=== PATIENT | female | born 1960 | race African-American/Black ===

== ENCOUNTER 2024-12-02 02:22 | Inpatient (IN) | payer BC, MEDICARE ==
[~2024-12-02] VITALS: Ht 165.1 cm; Wt 105.3 kg
[~2024-12-02 02:22] MED LIST: ASPI1TAB20 PO; CIPR-173 PO
--- NOTE | 2024-12-02 02:52 | ED.PDOC ---
History of Present Illness HPI Comments 63 y/o obese F presents with c/o hypoglycemia and generalized weakness. Patient has a history of DM w/neuropathy, Grave's disease, HLD, IBS, UTI's, and uterine fibroids. She reports feeling weak and checking and noticing her blood glucose being elevated, initially, an hour ago prior to arrival. Patient then endorses on taking her insulin and her blood glucose dropping significantly to the 40's range. Jerry also complains of 3-4x day history of intermittent headaches, palpitations, dizziness, and light vaginal spotting. She denies having any further associated symptoms. Chief Complaint: General Weakness Time Seen by MD: 02:50 Primary Care Provider: CHARLETTE HAVE ONE Reviewed Notes: Nurses Notes, Medications, Allergies Allergies: Coded Allergies: Codeine (Verified Allergy, Unknown, 02/11/14) Penicillins (Verified Allergy, Unknown, 02/25/14) Sulfa Antibiotics (Verified Allergy, Unknown, 02/25/14) Home Meds Reported Medications Ciprofloxacin Hcl (Cipro) 500 Mg Tab, 1 TAB PO QID, #20 TAB 02/26/14 Aspirin (Aspir-81) 81 Mg Tab, 1 TAB PO DAILY, #30 TAB 5 Refills 02/26/14 Information Source: Patient, Emergency Med Personnel Mode of Arrival: EMS Severity: Moderate Timing: Days Duration: Since onset Prehospital treatment: 12 Lead EKG, Accucheck, [employer] Past Medical History PAST MEDICAL HISTORY: DM (w/neuropathy), High Lipids, UTI'S Past Medical History (Other): Grave's disease IBS Surgical History: Denies all surgeries [employer]ATOR History: Uterine Fibroids (with nodules ) Family History Family History: No family hx of Cancer, No family hx of DM, No family hx of HTN Social History Smoker: Non-Smoker Alcohol: Denies ETOH Use Drugs: Denies Drug Use Lives In: Home Constitutional: reports: malaise, weakness (Lightheaded with any kind of activity so the patient will be admitted for hypoglycemia episode and severe generalized weakness for further supportive care) Genitourinary: reports: abnormal vagina bleeding Neurological: reports: dizziness All Other Systems: Reviewed and Negative (As per HPI) Physical Exam General Appearance: No Apparent Distress, Obese HEENT: Normal ENT Inspection, Pharynx Normal, TMs Normal Neck: Full Range of Motion, Non-Tender, Normal, Normal Inspection Respiratory: Chest Non-Tender, Lungs Clear, No Accessory Muscle Use, No Respiratory Distress, Normal Breath Sounds Cardiovascular: No Edema, No JVD, No Murmur, No Gallop, Normal Peripheral Pulses, Regular Rate/Rhythm Breast Exam: Deferred Gastrointestinal: No Organomegaly, Non Tender, No Pulsatile Mass, Normal Bowel Sounds, Soft Genitalia: Deferred Pelvic: Deferred Rectal: Deferred Extremities: Leg edema (2+ pedal edema to bilatearl lower extremities), No calf tenderness, Normal capillary refill, Normal range of motion, Non-tender, No pedal edema Musculoskeletal : Apperance: Normal Neurologic: Alert, dust operator II-XII nml as Tested, No Motor Deficits, Normal Affect, Normal Mood, No Sensory Deficits Cerebellar Function: Normal Reflexes: Normal Skin: Dry, Normal Color, Warm Lymphatic: No Adenopathy Was a procedure done? Was a procedure done?: No Differential Dx Considerations may include: viral syndrome, URI, UTI, hypoglycemia, electrolyte imbalance, among others X-Ray, Labs, Meds, VS Vital Signs Date Time Temp Pulse Resp B/P (MAP) Pulse Ox O2 Delivery O2 Flow Rate FiO2 12/02/24 02:56 69 12 96 Room Air* 0 21 12/02/24 02:56 98.8 69 12 125/55 (78) 96 98.8 12/02/24 02:22 98.8 69 14 133/65 (87) 97 98.8 Lab Test 12/02/24 04:00 12/02/24 03:42 12/02/24 02:52 Range/Units Urine Color Pending Urine Clarity Pending Urine pH Pending Urine Specific [place] Pending Urine Protein Pending Urine Ketones Pending Urine Blood Pending Urine Nitrite Pending Urine Bilirubin Pending Urine Urobilinogen Pending Urine Leukocyte Esterase Pending Urine RBC Pending Urine Microscopic WBC Pending Urine Squamous Epithelial Cells Pending Urine Bacteria Pending Urine Glucose Pending Troponin I High Sensitivity 11 11 </=34 ng/L White Blood Count 6.9 4.4-10.8 10^3/uL Red Blood Count 4.57 4.0-5.20 10^6/uL Hemoglobin 12.9 12.2-16.2 g/dL Hematocrit 39.0 36.0-46.0 % Mean Corpuscular Volume 85.3 80.0-100.0 fL Mean Corpuscular Hemoglobin 28.1 28.0-32.0 pg Mean Corpuscular Hemoglobin Concent 33.0 32.0-36.0 g/dL Red Cell Distribution Width 14.5 H 11.8-14.3 % Platelet Count 184 140-450 10^3/uL Mean Platelet Volume 7.3 6.9-10.8 fL Neutrophils (%) (Auto) 69.6 37.0-80.0 % Lymphocytes (%) (Auto) 20.5 10.0-50.0 % Monocytes (%) (Auto) 8.2 0.0-12.0 % Eosinophils (%) (Auto) 1.0 0.0-7.0 % Basophils (%) (Auto) 0.7 0.0-2.0 % Neutrophils # (Auto) 4.8 1.6-8.6 10 ^3/uL Lymphocytes # (Auto) 1.4 0.4-5.4 10 ^3/uL Monocytes # (Auto) 0.6 0-1.3 10 ^3/uL Eosinophils # (Auto) 0.1 0-0.8 10 ^3/uL Basophils # (Auto) 0 0-0.2 10 ^3/uL Nucleated Red Blood Cells 0.1 % Prothrombin Time 12.3 H 9.3-11.8 sec Prothrombin Time INR 1.18 H 0.9-1.15 Activated Partial Thromboplast Time 34.7 H 24.5-34.5 SEC Sodium Level 141 136-145 mmol/L Potassium Level 3.7 3.5-5.1 mmol/L Chloride Level 102 98-107 mmol/L Carbon Dioxide Level 29 20-31 mmol/L Anion Gap 10 5-15 Blood Urea Nitrogen 9 9-23 mg/dL Creatinine 0.85 0.550-1.02 mg/dL Glomerular Filtration Rate Calc 77 >90 mL/min BUN/Creatinine Ratio 10.6 10.0-20.0 Serum Glucose 175 H 74-106 mg/dL Calcium Level 8.8 8.7-10.4 mg/dL Total Bilirubin 0.7 0.2-1.0 mg/dL Aspartate Amino Transferase (AST) 29 <34 U/L Alanine Aminotransferase (ALT) 25 7-40 U/L Alkaline Phosphatase 147 H 46-116 U/L B-Type Natriuretic Peptide 20.50 0-100 pg/mL Total Protein 7.3 5.7-8.2 g/dL Albumin 4.0 3.2-4.8 g/dL Time of 1ST Reevaluation: 03:10 Reevaluation 1ST: Unchanged Patient Education/Counseling: Diagnosis, Treatment Family Education/Counseling: No Family Present Departure 1 Departure Time of Disposition: 04:18 Impression: Primary Impression: Post-menopause bleeding Additional Impressions: Generalized weakness Hypoglycemia Disposition: 09 ADMITTED INPATIENT Condition: Guarded Discharged With: Self Comments Severe Generalized Weakness and Hypoglycemia Chief Complaint: Severe generalized weakness, dizziness, and hypoglycemia History of Present Illness: Patient is a 63-year-old female with a history of type 2 diabetes, diabetic neuropathy, Graves' disease, irritable bowel syndrome, and uterine fibroids who presents to the ED with complaints of severe generalized weakness and dizziness with any kind of activity. She also reports mild vaginal bleeding. At home, her blood glucose was measured at 44 mg/dL, which improved after eating. Upon a rrival to the ED, her blood glucose had improved to 175 mg/dL. Despite this improvement, the patient continues to experience extreme weakness and lightheadedness with minimal exertion. Given her persistent symptoms and recent hypoglycemic episode, the decision has been made to admit the patient for further monitoring and supportive care. Review of Systems: Constitutional: Positive for generalized weakness and fatigue. Neurological: Positive for dizziness and lightheadedness with activity. Endocrine: Positive for history of diabetes with recent hypoglycemic episode. Genitourinary: Positive for mild vaginal bleeding. All other systems: Negative or not assessed during this encounter. Medications: Current medications not specified in molder shoulder pad. Likely on diabetic medications given history of type 2 diabetes and hypoglycemic episode. Likely on medication for Graves' disease. Allergies: No known allergies mentioned in molder shoulder pad. Past Medical History: Type 2 diabetes mellitus Diabetic neuropathy Graves' disease Irritable bowel syndrome Uterine fibroids Lab Results: Blood Glucose: 175 mg/dL (improved from 44 mg/dL at home) Chemistry Panel: Unremarkable CBC: Unremarkable Troponin: Normal at 11 BNP: Normal at 20 Hemoglobin: 13 g/dL Hematocrit: 39% Imaging and Other Relevant Results: No imaging studies mentioned in molder shoulder pad. Medical Decision Making: Summary Statement: 63-year-old female with type 2 diabetes presenting with severe generalized weakness, dizziness, and documented hypoglycemia (44 mg/dL) at home that has since improved to 175 mg/dL in the ED. Patient also reports mild vaginal bleeding. Problem List: 1. Hypoglycemia episode, 2. Severe generalized weakness and dizziness, 3. Mild vaginal bleeding, 4. Type 2 diabetes with neuropathy, 5. Graves' disease, 6. Irritable bowel syndrome, 7. Uterine fibroids. Differential Diagnosis: Hypoglycemia due to diabetic medication, adrenal insufficiency, malnutrition, insulinoma, reactive hypoglycemia; Weakness due to electrolyte abnormalities, anemia, cardiac dysfunction, thyroid dysfunction, medication side effects, dehydration; Vaginal bleeding due to uterine fibroids, endometrial pathology, hormonal imbalance, or other gynecological conditions. ED Course: Patient presented with severe weakness and dizziness. Initial labs showed improved blood glucose from home reading. Chemistry panel, CBC, troponin, and BNP were all within normal limits. Despite normalization of blood glucose, patient continued to experience significant weakness and lightheadedness with minimal activity. Decision made to admit for monitoring and supportive care. Assessment and Plan: 1. Hypoglycemia Episode: - Blood glucose improved from 44 mg/dL at home to 175 mg/dL in ED - Admit for close monitoring of blood glucose levels - Review current diabetic medication regimen and consider adjustment - Implement regular meal schedule with appropriate carbohydrate content - Educate patient on signs/symptoms of hypoglycemia and proper management 2. Severe Generalized Weakness and Dizziness: - Likely secondary to hypoglycemic episode, but persistent despite glucose normalization - Monitor for improvement with stabilization of blood glucose - Consider additional workup including thyroid function tests given history of Graves' disease - Assess for orthostatic hypotension and volume status - Physical therapy evaluation once stabilized 3. Mild Vaginal Bleeding: - Likely related to known uterine fibroids - Monitor quantity and character of bleeding - Consider gynecology consultation if bleeding persists or worsens - Check hemoglobin/hematocrit serially if bleeding continues 4. Chronic Medical Conditions (Type 2 Diabetes, Graves' Disease, IBS, Uterine Fibroids): - Continue home medications with adjustment of diabetic regimen as indicated - Assess thyroid function to ensure adequate control of Graves' disease - Maintain bowel regimen for IBS 5. Disposition: - Admit to medical floor for continued monitoring and management - Endocrinology consultation recommended - Anticipate discharge when blood glucose stabilizes and weakness improves Additional Notes: Patient admitted for hypoglycemia and severe generalized weakness Billing Information: ICD-10: E16.2 - Hypoglycemia, unspecified ICD-10: R53.1 - Weakness ICD-10: R42 - Dizziness and giddiness ICD-10: N93.8 - Other specified abnormal uterine and vaginal bleeding ICD-10: E11.40 - Type 2 diabetes mellitus with diabetic neuropathy, unspecified ICD-10: E05.0 - Graves' disease ICD-10: K58.9 - Irritable bowel syndrome without diarrhea ICD-10: D25.9 - Leiomyoma of uterus, unspecified Critical Care Note Critical Care Time?: No Stability Stability form required: No Heart Score Heart Score: Heart Score Response (Comments) Value History N/A 0 EKG N/A 0 Age N/A 0 Risk Factors N/A 0 Troponin N/A 0 Total 0 I personally scribed for KYLE ROSA MD ([email or web address]) on 12/02/24 at 02:52. Electronically submitted by Ashok Reynoso ([email or web address]). I personally scribed for KYLE ROSA MD ([email or web address]) on 12/02/24 at 03:10. Electronically submitted by Ashok Reynoso ([email or web address]). KYLE ROSA MD Dec 02, 2024 02:52
[2024-12-02 02:56] VITALS: PULSE 69; RESP 12; O2SAT 96
[2024-12-02 03:01] LABS: Basophils # (auto) 0 10 ^3/uL (0-0.2); Basophils % (auto) 0.7 % (0.0-2.0); Eosinophils # (auto) 0.1 10 ^3/uL (0-0.8); Hemoglobin 12.9 g/dL (12.2-16.2); Lymphocytes # (auto) 1.4 10 ^3/uL (0.4-5.4); Lymphocytes % (auto) 20.5 % (10.0-50.0); Mean Corpuscular Hemoglobin 28.1 pg (28.0-32.0); Mean Corpuscular Volume 85.3 fL (80.0-100.0); Monocytes # (auto) 0.6 10 ^3/uL (0-1.3); Monocytes % (auto) 8.2 % (0.0-12.0); Neutrophils # (auto) 4.8 10 ^3/uL (1.6-8.6); Neutrophils % (auto) 69.6 % (37.0-80.0); Nucleated Red Blood Cells % 0.1 %; Platelet Count (auto) 184 10^3/uL (140-450); Red Blood Cells 4.57 10^6/uL (4.0-5.20); Red Cell Distribution Width 14.5 % (11.8-14.3); White Blood Cell 6.9 10^3/uL (4.4-10.8)
[2024-12-02 03:17] LABS: INR 1.18 (0.9-1.15); Partial Thromboplastin Time 34.7 SEC (24.5-34.5); Prothrombin Time 12.3 sec (9.3-11.8)
[2024-12-02 03:19] LABS: Alanine Aminotransferase 25 U/L (7-40); Anion Gap 10 (5-15); Aspartate Aminotransferase 29 U/L (<34); BUN/Creatinine Ratio 10.6 (10.0-20.0); Bilirubin, Total 0.7 mg/dL (0.2-1.0); Blood Urea Nitrogen 9 mg/dL (9-23); Calcium 8.8 mg/dL (8.7-10.4); Carbon Dioxide 29 mmol/L (20-31); Chloride 102 mmol/L (98-107); Potassium 3.7 mmol/L (3.5-5.1); Sodium 141 mmol/L (136-145); Total Protein 7.3 g/dL (5.7-8.2)
[2024-12-02 03:21] LABS: Alkaline Phosphatase 147 U/L (46-116); Glucose 175 mg/dL (74-106)
--- NOTE | 2024-12-02 03:40 | DVH ---
CHEST RADIOGRAPH Indication: SOB Technique: Single frontal view of the chest was obtained COMPARISON: None FINDINGS: Lines and Tubes: None Lungs: Moderate diffuse increased prominence of the pulmonary vasculature. No evidence of focal conso lidation. Pleura: No effusion. No pneumothorax. Cardiomediastinal contours: Unremarkable Bones: Unremarkable IMPRESSION: 1. No acute disease. Moderate diffuse increased prominence of the pulmonary vasculature.
[2024-12-02 04:16] LABS: Urine Bacteria None Seen /hpf (None Seen)
[2024-12-02 04:23] LABS: Urine Blood 2+ /uL (Negative); Urine Clarity Clear (Clear); Urine Color Colorless (Yellow); Urine Protein, UAD Negative (Negative); Urine Specific Gravity 1.005 (1.001-1.035); Urine Squamous Epithelial Cell FEW /hpf (<5); Urine Urobilinogen Normal (Negative); Urine WBC 7 /HPF (0-5)
[2024-12-02] MEDS: cefTRIAXone 1GM/50ML D5W 50 ML IV ONE (04:28)
[2024-12-02 07:23] VITALS: PULSE 68; RESP 16; O2SAT 96
--- NOTE | 2024-12-02 07:36 | DVHHP2 ---
History of Present Illness Reason for Visit: Weakness and hypoglycemia History of Present Illness 63-year-old female past medical history diabetes with neuropathy Graves disease hyperlipidemia irritable bowel syndrome UTIs uterine fibroids chief complaint patient comes in stating that she feels nausea headache in the back of her head and behind the eyes as a pressure-like pain she states the headache has been going on for at least four days but worse today she also stated that she came in because she was concerned because she started feel nausea and when she uses a insulin pump which is located on her right side of her abdomen along with a monitor to check her glucose she said her sugar was 350 yesterday in his started dipping down to 33 with that finding she came to the ED for evaluation because she never had this issue happened the before she states that since that happened she started developing headache and not able to control her sugar patient states she has been dealing with the insulin pump for the last three months now she does see an docketing specialist outpatient patient states that usually her sugars are in range and she does admit to eating hours before the incident patient states she is also being worked up by Endocrine to check for a pituitary gland issue and she also complain of vaginal bleeding that has been going on for the last four days he has been in menopause she does have a sister who had a family history of breast cancer but no history of uterine and cervical cancer patient states he is going to at least two past of bleeding at they patient also complains of dizziness. She denies any chest pain no shortness with the breath when evaluating patient's labs and imaging CBC was unremarkable CMP unremarkable glucose was 175 INR is 1.18 chest x-ray was unremarkable just shows a little bit of the pulmonary vasculature otherwise unremarkable we will order UA and order CT scan of the brain since patient is complain of headache patient also complain of some issues with discoloration to the left inner foot in numbness and tingling to the foot so we will order arterial studies and ultrasound also we will order ultrasound to check for this vaginal bleeding if abnormal we will need to consider polisher numeral consult with these findings we will admit patient IV hydration monitoring blood glucose and order additional studies for other complaints Past Medical History See HPI above Past Surgical History See HPI above Family History Reviewed, non-contributory to the management of this case. Past Social History The patient lives at home, denies smoking, alcohol or illicit drugs abuse. Review of Systems Constitutional: No: Fever, Chills, Sweats, Weakness, Malaise, Other Eyes: No: Pain, Vision change, Conjunctivae inflammation, Eyelid inflammation, Other, Redness ENT: No: Ear pain, Ear discharge, Nose pain, Nose discharge, Nose congestion, Mouth pain, Mouth swelling, Throat pain, Throat swelling, Other Respiratory: No: Cough, Dry, Shortness of breath, SOB with excertion, Wheezing, Hemoptysis, Pleuritic Pain, Sputum, Wheezing, Other Cardiovascular: No: Chest Pain, Palpitations, Orthopnea, Paroxysmal Noc. Dyspnea, Edema, Lt Headedness, Other Gastrointestinal: No: Nausea, Vomiting, Abdominal Pain, Diarrhea, Constipation, Melena, Hematochezia, Other Genitourinary: No Dysuria, No Frequency, No Incontinence, No Hematuria, No Retention, No Other Musculoskeletal: foot pain; No: other, neck pain, shoulder pain, arm pain, back pain, hand pain, leg pain Skin: No: Rash, Lesions, Jaundice, Bruising, Other Neurological: Weakness, Other (headache); No: Numbness, Incoordination, Change in speech, Confusion, Seizures Allergies: Coded Allergies: Codeine (Verified Allergy, Unknown, 02/11/14) Penicillins (Verified Allergy, Unknown, 02/25/14) Sulfa Antibiotics (Verified Allergy, Unknown, 02/25/14) Exam Vital Signs Vital Signs Date Time Temp Pulse Resp B/P (MAP) Pulse Ox O2 Delivery O2 Flow Rate FiO2 12/02/24 06:00 67 15 126/67 (86) 93 12/02/24 02:56 Room Air* 0 21 12/02/24 02:56 98.8 98.8 General Appearance: Alert, Oriented X3, Cooperative, No acute distress HEENT: Atraumatic, PERRLA, EOMI, Mucous membr. moist/pink Respiratory: Clear to auscultation, Normal air movement Cardiovascular: Regular rate, Normal S1, Normal S2, No murmurs Abdominal: Normal bowel sounds, Soft, No tenderness, No hepatospenomegaly, No masses, Other (deferred vaginal exam) Extremities: No clubbing, No cyanosis, No edema, Normal pulses, No tender ness/swelling, Other (left medial foot with hyperpigmented skin no necrosis seen foot warm to touch +pulse felt, nvi) Skin: No rashes, No breakdown, No significant lesion Neuro: Normal speech, Other (neuro non focal) Psych/Mental Status: Mental status NL, Mood NL Labs/Xrays Chest x-ray shows pulmonary vasculature otherwise unremarkable I reviewed labs, imaging CT scan abdomen pelvis, EKG and all diagnostic studies on this patient from ED records and the medical chart Labs Test 12/02/24 05:27 12/02/24 04:00 12/02/24 02:52 Range/Units Lactic Acid Level 1.0 0.4-2.0 mmol/L Troponin I High Sensitivity 16 </=34 ng/L Urine Color Colorless Yellow Urine Clarity Clear Clear Urine pH 6.0 5.0-9.0 Urine Specific [place] 1.005 1.001-1.035 Urine Protein Negative Negative Urine Ketones Negative Negative Urine Blood 2+ H Negative /uL Urine Nitrite Negative Negative Urine Bilirubin Negative Negative Urine Urobilinogen Normal Negative mg/dL Urine Leukocyte Esterase Trace Negative /uL Urine RBC 27 0 - 4 /hpf Urine Microscopic WBC 7 H 0-5 /HPF Urine Squamous Epithelial Cells Few <5 /hpf Urine Bacteria None seen None Seen /hpf Urine Glucose Normal Normal mg/dL White Blood Count 6.9 4.4-10.8 10^3/uL Red Blood Count 4.57 4.0-5.20 10^6/uL Hemoglobin 12.9 12.2-16.2 g/dL Hematocrit 39.0 36.0-46.0 % Mean Corpuscular Volume 85.3 80.0-100.0 fL Mean Corpuscular Hemoglobin 28.1 28.0-32.0 pg Mean Corpuscular Hemoglobin Concent 33.0 32.0-36.0 g/dL Red Cell Distribution Width 14.5 H 11.8-14.3 % Platelet Count 184 140-450 10^3/uL Mean Platelet Volume 7.3 6.9-10.8 fL Neutrophils (%) (Auto) 69.6 37.0-80.0 % Lymphocytes (%) (Auto) 20.5 10.0-50.0 % Monocytes (%) (Auto) 8.2 0.0-12.0 % Eosinophils (%) (Auto) 1.0 0.0-7.0 % Basophils (%) (Auto) 0.7 0.0-2.0 % Neutrophils # (Auto) 4.8 1.6-8.6 10 ^3/uL Lymphocytes # (Auto) 1.4 0.4-5.4 10 ^3/uL Monocytes # (Auto) 0.6 0-1.3 10 ^3/uL Eosinophils # (Auto) 0.1 0-0.8 10 ^3/uL Basophils # (Auto) 0 0-0.2 10 ^3/uL Nucleated Red Blood Cells 0.1 % Prothrombin Time 12.3 H 9.3-11.8 sec Prothrombin Time INR 1.18 H 0.9-1.15 Activated Partial Thromboplast Time 34.7 H 24.5-34.5 SEC Sodium Level 141 136-145 mmol/L Potassium Level 3.7 3.5-5.1 mmol/L Chloride Level 102 98-107 mmol/L Carbon Dioxide Level 29 20-31 mmol/L Anion Gap 10 5-15 Blood Urea Nitrogen 9 9-23 mg/dL Creatinine 0.85 0.550-1.02 mg/dL Glomerular Filtration Rate Calc 77 >90 mL/min BUN/Creatinine Ratio 10.6 10.0-20.0 Serum Glucose 175 H 74-106 mg/dL Calcium Level 8.8 8.7-10.4 mg/dL Total Bilirubin 0.7 0.2-1.0 mg/dL Aspartate Amino Transferase (AST) 29 <34 U/L Alanine Aminotransferase (ALT) 25 7-40 U/L Alkaline Phosphatase 147 H 46-116 U/L B-Type Natriuretic Peptide 20.50 0-100 pg/mL Total Protein 7.3 5.7-8.2 g/dL Albumin 4.0 3.2-4.8 g/dL Assessment/Plan Assessment/Plan acute hypoglycemia without dka pt was found to have glucose 44 current 175 by blood will monitor glucose q4h for now will provide diet can consider d10 w if abnormal Acute bilateral lower extremity pain/neuropathy Order ultrasound to rule out DVT Order arterial studies check for vascular disease Order morphine as needed for pain Can restart home dose Lyrica Nursing to monitor for circulation compromise Acute intractable headache /dizziness Order CT scan of the brain follow up results Order Dilaudid as needed for pain Monitor for neuro deficits Order TSH follow up results Orthostatic vital sign order IV fluids for now Acute postmenopausal vaginal bleeding Order ultrasound Hemoglobin is stable right now If ultrasound is abnormal consider polisher numeral consult ordered ua to check for infection acute weakness likely from hypoglycemia Fall precautions Can have PT evaluation Chronic problems Type 2 Diabetes insulin sliding scale every 4 hours for now, Graves' Disease, IBS, Uterine Fibroids Hyperlipidemia UTIs fen/PPX Diet IV fluids for now No GI prophylaxis since no history occurs or GI bleed SCDs Plan admit to medicine Plan discussed with: Patient Date of Service: Dec 02, 2024 Billing Provider: YOMAIRA BOLTON DNP Common Visit Codes: [id number] INP/OBS CARE (HIGH) YOMAIRA BOLTON DNP Dec 02, 2024 07:36
[2024-12-02] MEDS ORDERED: DEXTROSE (50%) 50ML SYRG IV PRN (08:45)
[2024-12-02] MEDS ORDERED: DOCUSATE SOD 100 MG CAP PO PRN (08:45)
[2024-12-02] MEDS ORDERED: NITROGLYCERIN 0.4 MG SL TAB SL PRN (08:45)
[2024-12-02] MEDS ORDERED: MORPHINE SULFATE INJ 2 MG/ml SYRG IV PRN (08:45)
--- NOTE | 2024-12-02 09:23 | DVH ---
CT HEAD WITHOUT CONTRAST: HISTORY: eval for acute headache COMPARISON: None CONTRAST: Study was performed without contrast. TECHNIQUE: Axial images from the skull base to the vertex with coronal and sagittal reformatted image s. Dose reduction technique was used on this scan by utilizing automated exposure control, adjustment of the mA and/or kV according to the patient size. DICOM format image data available to non-affili ed external healthcare facilities or entities on a secure, media free, reciprocally searchable basis with patient authorization for at least a 12 month period after the study. FINDINGS: Parenchyma: No mass, midline shift, or edema. White matter appears normal for age. No intrapare nchymal hemorrhage or extra-axial fluid collection. Basal cisterns grossly unremarkable. Cerebellum a nd posterior fossa structures without focal abnormality. Ventricular system: Ventricles are normal. Other: Calvarium intact. Orbits symmetric. Sinuses and mastoid air cells are clear. IMPRESSION: 1. Negative CT scan of the head.
--- NOTE | 2024-12-02 09:56 | DVH ---
PELVIC ULTRASOUND (TRANSABDOMINAL) HISTORY: eval for acute post menopausal bleeding and pelvic pain COMPARISON: None TECHNIQUE: Grayscale images were obtained of the pelvis through a transabdominal approach. FINDINGS: UTERUS: Uterus measures 6.6 x 5.8 x 3.2 cm. Endometrial thickness measures 13.9 mm RIGHT ADNEXA: Right ovarian size: 2.5 x 1.9 x 2.3 cm There is no ovarian or adnexal mass. There is normal color flow in the ovary. LEFT ADNEXA: Left ovary is not visualized due to coustic windows No significant free fluid in the pelvis. IMPRESSION: 1. Endometrium is markedly thickened, abnormal for patient's age 2. Left ovary is not visualized
[2024-12-02] MEDS: ENOXAPARIN SOD 40 MG/0.4 ML SYRINGE SC SCH (09:57)
[2024-12-02] MEDS: SODIUM CHLORIDE 0.9% 1,000 ML IV SCH (09:57)
[2024-12-02] MEDS: ASPirin-EC 81 mg tab PO SCH (10:04)
[2024-12-02 10:46] VITALS: BP 113/68; PULSE 62; RESP 16; TEMP 98.6; O2SAT 93
[2024-12-02] MEDS ORDERED: INSLISPI SC (11:07)
[2024-12-02] MEDS ORDERED: GLIP-110 PO (11:07)
[2024-12-02] MEDS ORDERED: PREG200C19 PO (11:08)
[2024-12-02] MEDS ORDERED: IBUP-1455 PO (11:09)
[2024-12-02] MEDS: HYDROmorphone HCL 2 MG/ML VL/or syr IV PRN (11:57)
[2024-12-02] MEDS: ACCU-CHEK COMFORT CURVE STRIP VI SCH (12:01)
[2024-12-02] MEDS: ONDANSETRON HCL 4 MG/2 ML VIAL IV PRN (12:04)
--- NOTE | 2024-12-02 12:12 | DVH ---
Bilateral lower extremity venous duplex Clinical History: eval for dvt Comparison: None Technique: Duplex Doppler evaluation of the deep venous systems of both lower extremities from the common femora l veins to the popliteal veins including color Doppler and spectral/pulsed waveform analysis was perf ormed. Findings: RIGHT SIDE: The common femoral vein demonstrates appropriate compressibility and waveform variability. There is compressibility/patency of the great saphenous vein at the proximal thigh. The femoral vein demonstrates appropriate compressibility and waveform variability. The deep femoral vein demonstrates appropriate compressibility and waveform variability. The popliteal vein demonstrates appropriate compressibility and waveform variability. There is normal compressibility at the tibioperoneal trunk. LEFT SIDE: The common femoral vein demonstrates appropriate compressibility and waveform variability. There is compressibility/patency of the great saphenous vein at the proximal thigh. The femoral vein demonstrates appropriate compressibility and waveform variability. The deep femoral vein demonstrates appropriate compressibility and waveform variability. The popliteal vein demonstrates appropriate compressibility and waveform variability. There is normal compressibility at the tibioperoneal trunk. Impression: No right or left femoropopliteal venous thrombosis.
--- NOTE | 2024-12-02 12:12 | DVH ---
EXAM: US BILAT LOW EXT ART DUPLEX INDICATION: Edema, weakness TECHNIQUE: Grayscale and color doppler sonographic imaging evaluation of the right and left lower ext remity arterial system was performed COMPARISON: None available at the time of dictation. FINDINGS: RIGHT LOWER EXTREMITY ARTERIES: Common femoral artery: 92 Cm/s, triphasic Deep femoral artery: 35 Cm/s, triphasic Proximal femoral artery: 82 Cm/s, triphasic Mid femoral artery: 69 Cm/s, triphasic Distal femoral artery: 77 Cm/s, triphasic Popliteal artery: 68 Cm/s, triphasic Posterior tibial artery: 74 Cm/s, triphasic Dorsalis pedis artery: 57 Cm/s, triphasic LEFT LOWER EXTREMITY ARTERIES: Common femoral artery: 102 Cm/s, triphasic Deep femoral artery: 61 Cm/s, triphasic Proximal femoral artery: 91 Cm/s, triphasic Mid femoral artery: 79 Cm/s, triphasic Distal femoral artery: 78 Cm/s, triphasic Popliteal artery: 64 Cm/s, triphasic Posterior tibial artery: 62 Cm/s, triphasic Dorsalis pedis artery: 68 Cm/s, triphasic REFERENCE VALUES: Normal velocity ranges (in cm/sec) are as follows: [employer] 95-140, SFA 75-105, popliteal 54-84, tibial 41-81 cm/sec. Stenosis categories: 1.5-2.0 x normal velocity = 30-49%, 2.0-4.0 x normal velocity = 50-75%, >4.0 x normal velocity = >75%. IMPRESSION: 1. No sonographic evidence of a lower extremity arterial occlusion. Velocities as above.
[2024-12-02 12:23] VITALS: BP 114/58; PULSE 60; RESP 16; TEMP 97.6; O2SAT 94
[2024-12-02 16:47] VITALS: BP 128/73; PULSE 66; RESP 16; TEMP 97.2; O2SAT 91
[2024-12-02 21:00] VITALS: BP_SYST 115; BP_SYST 116; BP_SYST 119; BP_DIAS 60; BP_DIAS 65; PULSE 72; RESP 18; TEMP 97.3; O2SAT 94
[2024-12-03 01:00] VITALS: BP 104/45; PULSE 69; RESP 17; TEMP 97.3; O2SAT 99
[2024-12-03 05:00] VITALS: BP 113/49; PULSE 63; RESP 17; TEMP 97.4; O2SAT 98
[2024-12-03 07:24] LABS: Basophils # (auto) 0 10 ^3/uL (0-0.2); Basophils % (auto) 0.6 % (0.0-2.0); Eosinophils # (auto) 0.1 10 ^3/uL (0-0.8); Eosinophils % (auto) 0.8 % (0.0-7.0); Hematocrit 39.3 % (36.0-46.0); Hemoglobin 13.1 g/dL (12.2-16.2); Mean Corpuscular Hemoglobin 28.4 pg (28.0-32.0); Mean Corpuscular Hgb Conc. 33.4 g/dL (32.0-36.0); Mean Corpuscular Volume 85.2 fL (80.0-100.0); Monocytes # (auto) 0.5 10 ^3/uL (0-1.3); Neutrophils # (auto) 4.3 10 ^3/uL (1.6-8.6); Neutrophils % (auto) 62.6 % (37.0-80.0); Nucleated Red Blood Cells % 0.1 %; Platelet Count (auto) 177 10^3/uL (140-450); Red Blood Cells 4.61 10^6/uL (4.0-5.20); Red Cell Distribution Width 14.5 % (11.8-14.3); White Blood Cell 6.9 10^3/uL (4.4-10.8)
[2024-12-03 08:02] LABS: Alanine Aminotransferase 21 U/L (7-40); Albumin 3.8 g/dL (3.2-4.8); Anion Gap 8 (5-15); Aspartate Aminotransferase 23 U/L (<34); BUN/Creatinine Ratio 13.7 (10.0-20.0); Blood Urea Nitrogen 10 mg/dL (9-23); Calcium 9.7 mg/dL (8.7-10.4); Carbon Dioxide 29 mmol/L (20-31); Chloride 105 mmol/L (98-107); Glucose 93 mg/dL (74-106); Potassium 3.9 mmol/L (3.5-5.1); Sodium 142 mmol/L (136-145); Total Protein 7.3 g/dL (5.7-8.2)
[2024-12-03 08:05] LABS: Alkaline Phosphatase 128 U/L (46-116)
[2024-12-03 09:00] VITALS: BP 127/73; PULSE 60; RESP 18; TEMP 98.4; O2SAT 97
[2024-12-03 13:00] VITALS: BP 110/61; PULSE 62; RESP 18; TEMP 97.9; O2SAT 98
--- NOTE | 2024-12-03 15:49 | DVHPN2 ---
Progress Note Date Seen: Dec 03, 2024 Medical Necessity Reason Pt with a Central, PICC or Fol: No Subjective Patient reports: No new complaints Review of Systems: HEENT:Normal, CVS:Normal, RESPIRATORY:Normal, GI:Normal, :Normal, MSK:Normal, NEURO:Normal Objective vital signs Vital Sign Date Time Temp Pulse Resp B/P (MAP) Pulse Ox O2 Delivery O2 Flow Rate FiO2 12/03/24 09:00 98.4 60 18 127/73 (91) 97 98.4 12/03/24 08:00 Room Air* 0 21 Total Intake and Output 12/02/24 12/02/24 12/03/24 15:00 23:00 07:00 Intake Total 0 ml 900 ml Balance 0 ml 900 ml medications Current Medications Medications Dose Ordered Sig/Kristofer Route Start Time Stop Time Status Last Admin Dose Admin Diagnostic Test (Pha) 1 strip IQ4HR 12/02/24 12:00 12/03/24 12:00 1 STRIP Dextrose 50 ml UD PRN IV 12/02/24 08:45 Sodium Chloride 1,000 ml @ 100 mls/hr Q10H IV 12/02/24 08:45 12/03/24 04:47 100 MLS/HR Ondansetron HCl 4 mg Q4HP PRN IV 12/02/24 08:45 12/03/24 13:22 4 MG Docusate Sodium 100 mg BIDPRN PRN PO 12/02/24 08:45 Enoxaparin Sodium 40 mg DAILY SC 12/02/24 08:45 12/03/24 09:21 40 MG Nitroglycerin 0.4 mg Q5MINP PRN SL 12/02/24 08:45 Hydromorphone HCl 0.25 mg Q4HPRN PRN IV 12/02/24 10:00 12/02/24 11:57 0.25 MG Pregabalin 100 mg BID PO 12/03/24 22:00 UNV Examination: GENERAL:Normal, HEENT:Normal, NECK:Normal, LUNGS:Normal, CVS:Normal, ABDOMEN:Normal, MSK:Normal, SKIN:Normal, NEURO:Normal, :Normal laboratory and microbiology Laboratory Tests 12/03/24 06:12 Test 12/03/24 06:12 Range/Units Serum Glucose 93 74-106 mg/dL Microbiology Date/Time Source Procedure Growth Status 12/02/24 05:27 Blood Blood Culture - Preliminary NO GROWTH AFTER 24 HOURS OF INCUBATION. Resulted Problem List/Assessment/Plan Problem List/Assessment/Plan #1 hypoglycemia with encephalopathy #2 dm with insulin pump #3 obesity #4 h/o grave's disease #5 vaginal bleeding/endometrial thickening #6 breast milk production: check prolactin level advance care planning- full code- time spent 19 mins Plan discussed with: Patient My Orders My Orders Orders - TACHO PIPER MD Procedure Category Date Status Time Prolactin LAB 12/03/24 In Process 15:35 Pregabalin Capsule PHA 12/03/24 Logged (Lyrica Capsule) 22:00 Date of Service: Dec 03, 2024 Billing Provider: TACHO PIPER MD Common Visit Codes: [id number] INP/OBS CARE(HIGH) Secondary Visit Codes: [id number] CARE PLAN 30 MINUTES TACHO PIPER MD Dec 03, 2024 15:48
[2024-12-03 17:00] VITALS: BP 124/70; PULSE 67; RESP 18; TEMP 97.6; O2SAT 97
[2024-12-03] MEDS: ACETAMINOPHEN 325 MG TAB PO PRN (20:56)
[2024-12-03 21:00] VITALS: BP 130/59; PULSE 70; RESP 16; TEMP 98.9; O2SAT 95
[2024-12-03] MEDS: PREGABALIN 25 MG CAP PO SCH (22:03)
[2024-12-04] VITALS (7 sets, daily range): BP systolic 113–147; BP diastolic 60–90; PULSE 59–78; RESP 16–18; TEMP 97.2–98.6; O2SAT 95–99
[2024-12-04 08:07] LABS: Chloride 105 mmol/L (98-107); Sodium 143 mmol/L (136-145)
[2024-12-04 08:08] LABS: Anion Gap 9 (5-15); Carbon Dioxide 29 mmol/L (20-31)
[2024-12-04 08:09] LABS: Calcium 9.5 mg/dL (8.7-10.4)
[2024-12-04 08:13] LABS: Blood Urea Nitrogen 10 mg/dL (9-23); Glucose 104 mg/dL (74-106)
[2024-12-04 08:14] LABS: Magnesium 1.9 mg/dL (1.6-2.6)
--- NOTE | 2024-12-04 10:47 | DVHPN2 ---
Progress Note Date Seen: Dec 04, 2024 Medical Necessity Reason Pt with a Central, PICC or Fol: No Subjective Patient reports: No new complaints Review of Systems: HEENT:Normal, CVS:Normal, RESPIRATORY:Normal, GI:Normal, :Normal, MSK:Normal, NEURO:Normal Objective vital signs Vital Sign Date Time Temp Pulse Resp B/P (MAP) Pulse Ox O2 Delivery O2 Flow Rate FiO2 12/04/24 09:03 98.6 71 16 117/68 (84) 97 98.6 12/04/24 08:00 Room Air* 0 21 Total Intake and Output 12/03/24 12/03/24 12/04/24 15:00 23:00 07:00 Intake Total 514 ml 450 ml Balance 514 ml 450 ml medications Current Medications Medications Dose Ordered Sig/Kristofer Route Start Time Stop Time Status Last Admin Dose Admin Diagnostic Test (Pha) 1 strip IQ4HR 12/02/24 12:00 12/04/24 08:18 1 STRIP Dextrose 50 ml UD PRN IV 12/02/24 08:45 Sodium Chloride 1,000 ml @ 100 mls/hr Q10H IV 12/02/24 08:45 12/04/24 09:38 100 MLS/HR Ondansetron HCl 4 mg Q4HP PRN IV 12/02/24 08:45 12/03/24 13:22 4 MG Docusate Sodium 100 mg BIDPRN PRN PO 12/02/24 08:45 Enoxaparin Sodium 40 mg DAILY SC 12/02/24 08:45 12/04/24 09:33 40 MG Nitroglycerin 0.4 mg Q5MINP PRN SL 12/02/24 08:45 Hydromorphone HCl 0.25 mg Q4HPRN PRN IV 12/02/24 10:00 12/02/24 11:57 0.25 MG Pregabalin 100 mg BID PO 12/03/24 22:00 12/04/24 09:33 100 MG Acetaminophen 650 mg Q4HP PRN PO 12/03/24 17:15 12/03/24 20:56 650 MG Examination: GENERAL:Normal, HEENT:Normal, NECK:Normal, LUNGS:Normal, CVS:Normal, ABDOMEN:Normal, MSK:Normal, MSK:Abnormal (right nipple bleeding), SKIN:Normal, NEURO:Normal, :Normal laboratory and microbiology Laboratory Tests 12/04/24 07:24 12/03/24 06:12 Test 12/04/24 07:24 Range/Units Serum Glucose 104 74-106 mg/dL Microbiology Date/Time Source Procedure Growth Status 12/02/24 05:27 Blood Blood Culture - Preliminary NO GROWTH AFTER 48 HOURS OF INCUBATION. Resulted Problem List/Assessment/Plan Problem List/Assessment/Plan #1 hypoglycemia with encephalopathy #2 dm with insulin pump #3 obesity #4 h/o grave's disease #5 vaginal bleeding/endometrial thickening #6 right breast/nipple bleeding: surg eval advance care planning- full code- time spent 19 mins Plan discussed with: Patient My Orders My Orders Orders - TACHO PIPER MD Procedure Category Date Status Time Pregabalin Capsule PHA 12/03/24 In Process (Lyrica Capsule) 22:00 Free T3 LAB 12/04/24 In Process 06:00 Free T4 (Free LAB 12/04/24 In Process Thyroxine) 06:00 Acetaminophen Tablet PHA 12/03/24 In Process (Tylenol Tablet) 17:15 Date of Service: Dec 04, 2024 Billing Provider: TACHO PIPER MD Common Visit Codes: [id number] INP/OBS CARE(HIGH) TACHO PIPER MD Dec 04, 2024 10:47
--- NOTE | 2024-12-04 12:50 | DVHPN2 ---
Progress Note Date Seen: Dec 04, 2024 Medical Necessity Reason Pt with a Central, PICC or Fol: No Objective vital signs Vital Sign Date Time Temp Pulse Resp B/P (MAP) Pulse Ox O2 Delivery O2 Flow Rate FiO2 12/04/24 09:03 98.6 71 16 117/68 (84) 97 98.6 12/04/24 08:00 Room Air* 0 21 Total Intake and Output 12/03/24 12/03/24 12/04/24 15:00 23:00 07:00 Intake Total 514 ml 450 ml Balance 514 ml 450 ml medications Current Medications Medications Dose Ordered Sig/Kristofer Route Start Time Stop Time Status Last Admin Dose Admin Diagnostic Test (Pha) 1 strip IQ4HR 12/02/24 12:00 12/04/24 08:18 1 STRIP Dextrose 50 ml UD PRN IV 12/02/24 08:45 Ondansetron HCl 4 mg Q4HP PRN IV 12/02/24 08:45 12/03/24 13:22 4 MG Docusate Sodium 100 mg BIDPRN PRN PO 12/02/24 08:45 Nitroglycerin 0.4 mg Q5MINP PRN SL 12/02/24 08:45 Hydromorphone HCl 0.25 mg Q4HPRN PRN IV 12/02/24 10:00 12/02/24 11:57 0.25 MG Pregabalin 100 mg BID PO 12/03/24 22:00 12/04/24 09:33 100 MG Acetaminophen 650 mg Q4HP PRN PO 12/03/24 17:15 12/03/24 20:56 650 MG laboratory and microbiology Laboratory Tests 12/04/24 07:24 12/03/24 06:12 Test 12/04/24 07:24 Range/Units Serum Glucose 104 74-106 mg/dL Problem List/Assessment/Plan Problem List/Assessment/Plan 12/04/[age] year old female who has three children which she adopted, had one spontaneous , no term pregnancies, no , menarche at 13 years od, menopause at age 53, sister had mastectomy of right breast for cancer after which she had to have chemotherapy and radiation treatments patient had a "lesion" on her right nipple since about six months ago for which her primary MD treated her with antibiotics and obtained an ultrasound which was reported as normal. She has bloody discharge from the right nipple and no palpable dominant mass. Ultrasound is pending. her breast is tender to palpation, no palpable axillary lymph nodes are noted. (patient examined in the presence of her female nurse. When I discussed biopsy she expressed concern about anesthesia because she has " history of palpitations and heart murmur". Will obtain cardiology evaluation prior to proceeding to biopsy vs. ductal papilloma excision. awaiting ultrasound report. will follow. Plan discussed with: Patient REGINA CERNA MD Dec 04, 2024 12:50
--- NOTE | 2024-12-04 14:15 | DVH ---
US OF THE RIGHT BREAST INDICATION: Abscess TECHNIQUE: All 4 quadrants, subareolar region and axillary region of the RIGHT breast were evaluated with ultrasound COMPARISON: None FINDINGS: No solid or suspicious masses. No areas of architectural distortion. No malignant adenopathy. No dominant cysts are present. IMPRESSION: There is no sonographic evidence for malignancy. No abscess or fluid collection. Recommend diagnostic bilateral mammography. ACR Bi Rads Category:Category 0-"INCOMPLETE" (Needs Additional Imaging Evaluation))
[2024-12-04] MEDS ORDERED: DEXTROSE (50%) 50ML SYRG IV PRN (14:45)
[2024-12-04] MEDS ORDERED: ACCU-CHEK COMFORT CURVE STRIP VI SCH (17:00)
[2024-12-04] MEDS: ACCU-CHEK COMFORT CURVE STRIP VI SCH (17:00)
--- NOTE | 2024-12-04 17:34 | DVHCONRES ---
Date Seen: Dec 04, 2024 Resident Creating Document: GODWIN GOODEN RESIDENT Referring Physician Dr. Dejesus Reason for Consultation Preop eval. History of heart murmur and palpitations History of Present Illness Patient is a 63-year-old female with past medical history of Graves disease, type 2 diabetes, diabetic neuropathy, endometriosis, IBS, who comes in due to low blood glucose levels. According to the patient, her blood sugar went really high and her device automatically administers insulin, after which her blood glucose continued to drop to as low as 33 at which point she started feeling dizziness, sweating, disorientation which is what prompted this visit to the hospital. Patient also notes that she started experiencing vaginal bleeding 4 days ago which is unusual for her. Per patient, she has had a wound on her breast that has now been present for the last 5 months, initially her PCP had thought it was due to a blunt force trauma, however patient denies experiencing trauma. On review of systems patient is complaining of fatigue, nausea, dysuria and palpitations. Chest x-ray showed moderate diffuse increased prominence of pulmonary vasculature. Past Medical History Graves disease, type 2 diabetes, diabetic neuropathy, endometriosis, IBS Family History: Family history: Cardiovascular disease Social History Smoking: Denies Alcohol: Denies Drugs: Denies Allergies: Coded Allergies: Codeine (Verified Allergy, Unknown, 02/11/14) Penicillins (Verified Allergy, Unknown, 02/25/14) Sulfa Antibiotics (Verified Allergy, Unknown, 02/25/14) Home Meds Reported Medications Ibuprofen Micronized (Ibuprofen) 800 Mg Tab, 500 MG PO PRN, TAB 12/02/24 Pregabalin (Lyrica) 200 Mg Cap, 300 MG PO BID, CAP 12/02/24 Glipizide (Glipizide Er) 5 Mg Tab, 5 MG PO BID for 30 Days, MG 12/02/24 Insulin Lispro (Human) (Humalog) 100 Unit/Ml Inj, 100 UNIT SC, INJ 12/02/24 Ciprofloxacin Hcl (Cipro) 500 Mg Tab, 1 TAB PO QID, #20 TAB 02/26/14 Aspirin (Aspir-81) 81 Mg Tab, 1 TAB PO DAILY, #30 TAB 5 Refills 02/26/14 Current Medications Current Medications Medications (Trade) Dose Ordered Sig/Kristofer Route PRN Reason Start Time Stop Time Status Last Admin Pregabalin (Lyrica Capsule) 100 mg BID PO 12/03/24 22:00 12/04/24 14:31 DC 12/04/24 09:33 Pregabalin (Lyrica Capsule) 300 mg BID PO 12/04/24 22:00 Diagnostic Test (Pha) (Accu-Chek Comfort Curve T) 1 strip ACHS 12/04/24 17:00 Cancel Diagnostic Test (Pha) (Accu-Chek Comfort Curve T) 1 strip ACHS 12/04/24 17:00 Insulin Human Regular (InsuLIN R) HS SC 12/04/24 22:00 Insulin Human Regular (InsuLIN R) AC SC 12/04/24 17:00 Dextrose 50 ml UD PRN IV Blood Sugar LESS THAN 60 12/04/24 14:45 Insulin Glargine (Lantus) 15 units HS SC 12/04/24 22:00 Review of Systems Patient seen and examined at bedside. Patient is alert and oriented to time, place person and responding to all questions. General: Fatigue Eyes: No Pain, No Vision change, No Conjunctivae inflammation, No Eyelid inflammation, No Other, No Redness ENT: No Ear pain, No Ear discharge, No Nose pain, No Nose discharge, No Nose congestion, No Mouth pain, No Mouth swelling, No Throat pain, No Throat swelling, No Other Cardiovascular: No Chest Pain, Palpitations, No Orthopnea, No Paroxysmal No Dyspnea, No Edema, No Lt Headedness, No Other Respiratory: No Cough, No Dry, No Shortness of breath, No SOB with exertion, No Wheezing, No Hemoptysis, No Pleuritic Pain, No Sputum, No Other Gastrointestinal: Nausea, No Vomiting, No Abdominal Pain, No Diarrhea, No Constipation, No Melena, No Hematochezia, No Other Genitourinary: Dysuria, No Frequency, No Incontinence, No Hematuria, No Retention, No Other Musculoskeletal: No other, No neck pain, No shoulder pain, No arm pain, No back pain, No hand pain, No leg pain, No foot pain Skin: No Rash, No Lesions, No Jaundice, No Bruising, No Other Vital Signs Vital Signs Date Time Temp Pulse Resp B/P (MAP) Pulse Ox O2 Delivery O2 Flow Rate FiO2 12/04/24 17:03 98.1 63 16 113/60 (77) 98 98.1 12/04/24 08:00 Room Air* 0 21 Physical Exam General Appearance: Cooperative. Well developed. Well nourished. NAD Head Exam: Normal inspection Neck Exam: Normal inspection. Non-tender. Normal alignment Pulmonary/Respiratory: Chest non-tender. Clear bilateral breath sounds, no crackles, no wheezing. Cardiovascular/Chest: Regular rate and rhythm. No murmurs. No JVD. Peripheral Pulses: 2+ Radial (R). 2+ Radial (L). 2+ Pedal (R). 2+ Pedal (L) Abdominal Exam: Normal bowel sounds. Soft. normal abdomen, no visible veins, Nontender. No hepatospenomegaly. No masses Ankle Exam: Negative ankle edema Lower extremities: Negative lower extremity edema Neuro/Mental Status: A&O x4. Coherent. Thoughts/Psych: Normal thought pattern. Appropriate mood and affect. Good judgement and insight Skin Exam: Normal inspection. Normal color. Warm. Dry Labs/Diagnostic Data Labs Test 12/04/24 13:31 12/04/24 07:24 12/03/24 06:12 12/02/24 05:27 Range/Units POC Glucose 191 H 70-106 mg/dl Sodium Level 143 136-145 mmol/L Potassium Level 4.0 3.5-5.1 mmol/L Chloride Level 105 98-107 mmol/L Carbon Dioxide Level 29 20-31 mmol/L Anion Gap 9 5-15 Blood Urea Nitrogen 10 9-23 mg/dL Creatinine 0.77 0.550-1.02 mg/dL Glomerular Filtration Rate Calc 87 >90 mL/min BUN/Creatinine Ratio 13.0 10.0-20.0 Serum Glucose 104 74-106 mg/dL Hemoglobin A1c 9.5 H <5.7 % A1C Calcium Level 9.5 8.7-10.4 mg/dL Magnesium Level 1.9 1.6-2.6 mg/dL White Blood Count 6.9 4.4-10.8 10^3/uL Red Blood Count 4.61 4.0-5.20 10^6/uL Hemoglobin 13.1 12.2-16.2 g/dL Hematocrit 39.3 36.0-46.0 % Mean Corpuscular Volume 85.2 80.0-100.0 fL Mean Corpuscular Hemoglobin 28.4 28.0-32.0 pg Mean Corpuscular Hemoglobin Concent 33.4 32.0-36.0 g/dL Red Cell Distribution Width 14.5 H 11.8-14.3 % Platelet Count 177 140-450 10^3/uL Mean Platelet Volume 7.9 6.9-10.8 fL Neutrophils (%) (Auto) 62.6 37.0-80.0 % Lymphocytes (%) (Auto) 29.0 10.0-50.0 % Monocytes (%) (Auto) 7.0 0.0-12.0 % Eosinophils (%) (Auto) 0.8 0.0-7.0 % Basophils (%) (Auto) 0.6 0.0-2.0 % Neutrophils # (Auto) 4.3 1.6-8.6 10 ^3/uL Lymphocytes # (Auto) 2.0 0.4-5.4 10 ^3/uL Monocytes # (Auto) 0.5 0-1.3 10 ^3/uL Eosinophils # (Auto) 0.1 0-0.8 10 ^3/uL Basophils # (Auto) 0 0-0.2 10 ^3/uL Nucleated Red Blood Cells 0.1 % Total Bilirubin 1.0 0.2-1.0 mg/dL Aspartate Amino Transferase (AST) 23 <34 U/L Alanine Aminotransferase (ALT) 21 7-40 U/L Alkaline Phosphatase 128 H 46-116 U/L Total Protein 7.3 5.7-8.2 g/dL Albumin 3.8 3.2-4.8 g/dL Prolactin 7.87 2.8-29.2 ng/mL Lactic Acid Level 1.0 0.4-2.0 mmol/L Troponin I High Sensitivity 16 </=34 ng/L Thyroid Stimulating Hormone (TSH) 1.22 0.55-4.78 uIU/mL Test 12/02/24 04:00 12/02/24 02:52 Range/Units Urine Color Colorless Yellow Urine Clarity Clear Clear Urine pH 6.0 5.0-9.0 Urine Specific [place] 1.005 1.001-1.035 Urine Protein Negative Negative Urine Ketones Negative Negative Urine Blood 2+ H Negative /uL Urine Nitrite Negative Negative Urine Bilirubin Negative Negative Urine Urobilinogen Normal Negative mg/dL Urine Leukocyte Esterase Trace Negative /uL Urine RBC 27 0 - 4 /hpf Urine Microscopic WBC 7 H 0-5 /HPF Urine Squamous Epithelial Cells Few <5 /hpf Urine Bacteria None seen None Seen /hpf Urine Glucose Normal Normal mg/dL Prothrombin Time 12.3 H 9.3-11.8 sec Prothrombin Time INR 1.18 H 0.9-1.15 Activated Partial Thromboplast Time 34.7 H 24.5-34.5 SEC B-Type Natriuretic Peptide 20.50 0-100 pg/mL Microbiology Date/Time Source Procedure Growth Status 12/02/24 05:27 Blood Blood Culture - Preliminary NO GROWTH AFTER 48 HOURS OF INCUBATION. Resulted Assessment Type 2 diabetes with an episode of hypoglycemia induced encephalopathy Type 2 diabetes, uncontrolled on insulin dependent History of Graves disease Family history of atrial fibrillation in sister and brother Bloody nipple discharge; preop clearance for breast biopsy Plan: Ordered echocardiogram Ordered 12 lead EKG Serum BNP 20 Revised cardiac risk index: Patient has no cardiac contraindications to proceed with the surgery. Cardiac symptoms have been ruled out. There was no underlying history of congestive heart failure, coronary artery disease, equivalent of cardiac symptoms and has good functional capacity, equivalent of 4 Mets. Per Cardiology standpoint, patient is at a low risk for a low risk procedure. After echocardiogram is completed, no further cardiac workup indicated. Thank you so much for the opportunity to consult on your patient. Cardiology team will follow the patient. In case of any questions or concerns please feel free to reach out. Plan discussed with Dr. Ellsworth Plan discussed with: Patient, Other (RN) Visit Coding Cardiology RES Date of Service: Dec 04, 2024 Billing Provider: MARIBELL ELLSWORTH MD Cardiology Common Codes: [id number] INP/OBS CARE (High) GODWIN GOODEN RESIDENT Dec 04, 2024 17:34
[2024-12-04] MEDS: InsuLIN REG 1unit/0.01ml Soln (100units/ml) SC SCH ×2 (18:13→22:00)
--- NOTE | 2024-12-04 20:09 | ECG ---
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
[2024-12-04] MEDS: INSULIN LANTUS (GLARGINE) 1 /0.01ml (100units/ml) SC SCH (22:04)
[2024-12-04] MEDS: PREGABALIN CAPSULE 75 MG CAP PO SCH (22:05)
--- NOTE | 2024-12-05 00:20 | DVHINCON2 ---
Date Seen: Dec 04, [address] Djeesus Reason for Consultation Preop eval. History of heart murmur and palpitations History of Present Illness This is a 63-year-old female with a past medical history of Graves disease, type 2 diabetes, diabetic neuropathy, endometriosis, IBS, who presented to the ED with c/o low blood glucose levels. According to the patient, her blood sugar went really high and her device automatically administers insulin, after which her blood glucose continued to drop to as low as 33 at which point she started feeling dizziness, sweating, disorientation which is what prompted this visit to the hospital. Patient also notes that she started experiencing vaginal bleeding 4 days ago which is unusual for her. Per patient, she has had a wound on her breast that has now been present for the last 5 months, initially her PCP had thought it was due to a blunt force trauma, however patient denies experiencing trauma. Patient is also complaining of fatigue, nausea, dysuria and palpitations. Chest x-ray showed moderate diffuse increased prominence of pulmonary vasculature. CBC and CMP are unremarkable. Troponin was negative x3. Patient was admitted to the hospital. I am asked to consult on this patient. Past Medical History Graves disease, type 2 diabetes, diabetic neuropathy, endometriosis, IBS Family History: Family history: Cardiovascular disease Allergies: Coded Allergies: Codeine (Verified Allergy, Unknown, 02/11/14) Penicillins (Verified Allergy, Unknown, 02/25/14) Sulfa Antibiotics (Verified Allergy, Unknown, 02/25/14) Home Meds Reported Medications Ibuprofen Micronized (Ibuprofen) 800 Mg Tab, 500 MG PO PRN, TAB 12/02/24 Pregabalin (Lyrica) 200 Mg Cap, 300 MG PO BID, CAP 12/02/24 Glipizide (Glipizide Er) 5 Mg Tab, 5 MG PO BID for 30 Days, MG 12/02/24 Insulin Lispro (Human) (Humalog) 100 Unit/Ml Inj, 100 UNIT SC, INJ 12/02/24 Ciprofloxacin Hcl (Cipro) 500 Mg Tab, 1 TAB PO QID, #20 TAB 02/26/14 Aspirin (Aspir-81) 81 Mg Tab, 1 TAB PO DAILY, #30 TAB 5 Refills 02/26/14 Current Medications Current Medications Medications (Trade) Dose Ordered Sig/Kristofer Route PRN Reason Start Time Stop Time Status Last Admin Pregabalin (Lyrica Capsule) 300 mg BID PO 12/04/24 22:00 12/04/24 22:05 Diagnostic Test (Pha) (Accu-Chek Comfort Curve T) 1 strip ACHS 12/04/24 17:00 Cancel Diagnostic Test (Pha) (Accu-Chek Comfort Curve T) 1 strip ACHS 12/04/24 17:00 12/04/24 21:57 Insulin Human Regular (InsuLIN R) HS SC 12/04/24 22:00 12/04/24 22:00 Insulin Human Regular (InsuLIN R) AC SC 12/04/24 17:00 12/04/24 18:13 Dextrose 50 ml UD PRN IV Blood Sugar LESS THAN 60 12/04/24 14:45 Insulin Glargine (Lantus) 15 units HS ME 12/04/24 22:00 12/04/24 22:04 Review of Systems Patient seen and examined at bedside. Patient is alert and oriented to time, place person and responding to all questions. General: Fatigue Eyes: No Pain, No Vision change, No Conjunctivae inflammation, No Eyelid inflammation, No Other, No Redness ENT: No Ear pain, No Ear discharge, No Nose pain, No Nose discharge, No Nose congestion, No Mouth pain, No Mouth swelling, No Throat pain, No Throat swelling, No Other Cardiovascular: No Chest Pain, Palpitations, No Orthopnea, No Paroxysmal No Dyspnea, No Edema, No Lt Headedness, No Other Respiratory: No Cough, No Dry, No Shortness of breath, No SOB with exertion, No Wheezing, No Hemoptysis, No Pleuritic Pain, No Sputum, No Other Gastrointestinal: Nausea, No Vomiting, No Abdominal Pain, No Diarrhea, No Constipation, No Melena, No Hematochezia, No Other Genitourinary: Dysuria, No Frequency, No Incontinence, No Hematuria, No Retention, No Other Musculoskeletal: No other, No neck pain, No shoulder pain, No arm pain, No back pain, No hand pain, No leg pain, No foot pain Skin: No Rash, No Lesions, No Jaundice, No Bruising, No Other Vital Signs Vital Signs Date Time Temp Pulse Resp B/P (MAP) Pulse Ox O2 Delivery O2 Flow Rate FiO2 12/04/24 21:00 98.0 69 17 147/72 (97) 95 98.0 12/04/24 08:00 Room Air* 0 21 Physical Exam GENERAL: Alert and oriented x 3. No acute distress. EYES: PERRL, EOMI. Anicteric. HENT: Moist mucous membranes. LUNGS: Clear to auscultation bilaterally. CARDIOVASCULAR: Regular rate and rhythm. ABDOMEN: Soft, non-tender and non-distended. EXTREMITIES: No edema. NEUROLOGIC: No focal neurological deficits. SKIN: Warm, dry. Labs/Diagnostic Data Labs Test 12/04/24 21:53 12/04/24 07:24 12/03/24 06:12 12/02/24 05:27 Range/Units POC Glucose 274 H 70-106 mg/dl Sodium Level 143 136-145 mmol/L Potassium Level 4.0 3.5-5.1 mmol/L Chloride Level 105 98-107 mmol/L Carbon Dioxide Level 29 20-31 mmol/L Anion Gap 9 5-15 Blood Urea Nitrogen 10 9-23 mg/dL Creatinine 0.77 0.550-1.02 mg/dL Glomerular Filtration Rate Calc 87 >90 mL/min BUN/Creatinine Ratio 13.0 10.0-20.0 Serum Glucose 104 74-106 mg/dL Hemoglobin A1c 9.5 H <5.7 % A1C Calcium Level 9.5 8.7-10.4 mg/dL Magnesium Level 1.9 1.6-2.6 mg/dL White Blood Count 6.9 4.4-10.8 10^3/uL Red Blood Count 4.61 4.0-5.20 10^6/uL Hemoglobin 13.1 12.2-16.2 g/dL Hematocrit 39.3 36.0-46.0 % Mean Corpuscular Volume 85.2 80.0-100.0 fL Mean Corpuscular Hemoglobin 28.4 28.0-32.0 pg Mean Corpuscular Hemoglobin Concent 33.4 32.0-36.0 g/dL Red Cell Distribution Width 14.5 H 11.8-14.3 % Platelet Count 177 140-450 10^3/uL Mean Platelet Volume 7.9 6.9-10.8 fL Neutrophils (%) (Auto) 62.6 37.0-80.0 % Lymphocytes (%) (Auto) 29.0 10.0-50.0 % Monocytes (%) (Auto) 7.0 0.0-12.0 % Eosinophils (%) (Auto) 0.8 0.0-7.0 % Basophils (%) (Auto) 0.6 0.0-2.0 % Neutrophils # (Auto) 4.3 1.6-8.6 10 ^3/uL Lymphocytes # (Auto) 2.0 0.4-5.4 10 ^3/uL Monocytes # (Auto) 0.5 0-1.3 10 ^3/uL Eosinophils # (Auto) 0.1 0-0.8 10 ^3/uL Basophils # (Auto) 0 0-0.2 10 ^3/uL Nucleated Red Blood Cells 0.1 % Total Bilirubin 1.0 0.2-1.0 mg/dL Aspartate Amino Transferase (AST) 23 <34 U/L Alanine Aminotransferase (ALT) 21 7-40 U/L Alkaline Phosphatase 128 H 46-116 U/L Total Protein 7.3 5.7-8.2 g/dL Albumin 3.8 3.2-4.8 g/dL Prolactin 7.87 2.8-29.2 ng/mL Lactic Acid Level 1.0 0.4-2.0 mmol/L Troponin I High Sensitivity 16 </=34 ng/L Thyroid Stimulating Hormone (TSH) 1.22 0.55-4.78 uIU/mL Test 12/02/24 04:00 12/02/24 02:52 Range/Units Urine Color Colorless Yellow Urine Clarity Clear Clear Urine pH 6.0 5.0-9.0 Urine Specific [place] 1.005 1.001-1.035 Urine Protein Negative Negative Urine Ketones Negative Negative Urine Blood 2+ H Negative /uL Urine Nitrite Negative Negative Urine Bilirubin Negative Negative Urine Urobilinogen Normal Negative mg/dL Urine Leukocyte Esterase Trace Negative /uL Urine RBC 27 0 - 4 /hpf Urine Microscopic WBC 7 H 0-5 /HPF Urine Squamous Epithelial Cells Few <5 /hpf Urine Bacteria None seen None Seen /hpf Urine Glucose Normal Normal mg/dL Prothrombin Time 12.3 H 9.3-11.8 sec Prothrombin Time INR 1.18 H 0.9-1.15 Activated Partial Thromboplast Time 34.7 H 24.5-34.5 SEC B-Type Natriuretic Peptide 20.50 0-100 pg/mL Microbiology Date/Time Source Procedure Growth Status 12/02/24 05:27 Blood Blood Culture - Preliminary NO GROWTH AFTER 48 HOURS OF INCUBATION. Resulted Assessment Type 2 diabetes with an episode of hypoglycemia induced encephalopathy. Type 2 diabetes, uncontrolled on insulin dependent. History of Graves disease. Family history of atrial fibrillation in sister and brother. Bloody nipple discharge; preop clearance for breast biopsy. Plan/Recommendation I agree with your ongoing assessment and care of plan. Patient has been seen by Osvaldo Byrne, resident on my behalf. We have discussed the plan with the patient. Ordered echocardiogram. Ordered 12 lead EKG. Serum BNP 20. Revised cardiac risk index: Patient has no cardiac contraindications to proceed with the surgery. Cardiac symptoms have been ruled out. There was no underlying history of congestive heart failure, coronary artery disease, equivalent of cardiac symptoms and has good functional capacity, equivalent of 4 Mets. Per Cardiology standpoint, patient is at a low risk for a low risk procedure. Dilaudid for pain management. Nitro SL. Additional plan as per the hospital course. Plan discussed with: Patient NYHA Physical activity limitations: NA Date of Service: Dec 04, 2024 Billing Provider: MARIBELL ELLSWORTH MD Cardiology Common Codes: 48102-[id number] INP/OBS CARE (High) MARIBELL ELLSWORTH MD Dec 05, 2024 00:20
[2024-12-05 01:00] VITALS: BP 106/53; PULSE 68; RESP 16; TEMP 98.1; O2SAT 100
--- NOTE | 2024-12-05 07:17 | DVHPN2 ---
Progress Note Date Seen: Dec 05, 2024 Medical Necessity Reason Pt with a Central, PICC or Fol: No Objective vital signs Vital Sign Date Time Temp Pulse Resp B/P (MAP) Pulse Ox O2 Delivery O2 Flow Rate FiO2 12/05/24 01:00 98.1 68 16 106/53 (70) 100 98.1 12/04/24 20:00 Room Air* 0 21 Total Intake and Output 12/04/24 12/04/24 12/05/24 15:00 23:00 07:00 Intake Total 400 ml 350 ml 100 ml Balance 400 ml 350 ml 100 ml medications Current Medications Medications Dose Ordered Sig/Kristofer Route Start Time Stop Time Status Last Admin Dose Admin Ondansetron HCl 4 mg Q4HP PRN IV 12/02/24 08:45 12/03/24 13:22 4 MG Docusate Sodium 100 mg BIDPRN PRN PO 12/02/24 08:45 Nitroglycerin 0.4 mg Q5MINP PRN SL 12/02/24 08:45 Hydromorphone HCl 0.25 mg Q4HPRN PRN IV 12/02/24 10:00 12/02/24 11:57 0.25 MG Acetaminophen 650 mg Q4HP PRN PO 12/03/24 17:15 12/03/24 20:56 650 MG Pregabalin 300 mg BID PO 12/04/24 22:00 12/04/24 22:05 300 MG Diagnostic Test (Pha) 1 strip ACHS 12/04/24 17:00 Cancel Diagnostic Test (Pha) 1 strip ACHS 12/04/24 17:00 12/05/24 06:22 1 STRIP Insulin Human Regular HS SC 12/04/24 22:00 12/04/24 22:00 6 UNITS Insulin Human Regular AC SC 12/04/24 17:00 12/04/24 18:13 6 UNITS Dextrose 50 ml UD PRN IV 12/04/24 14:45 Insulin Glargine 15 units HS SC 12/04/24 22:00 12/04/24 22:04 15 UNITS laboratory and microbiology Laboratory Tests 12/04/24 07:24 12/03/24 06:12 Test 12/04/24 07:24 Range/Units Serum Glucose 104 74-106 mg/dL Problem List/Assessment/Plan Problem List/Assessment/Plan 12/04/[age] year old female who has three children which she adopted, had one spontaneous , no term pregnancies, no , menarche at 13 years od, menopause at age 53, sister had mastectomy of right breast for cancer after which she had to have chemotherapy and radiation treatments patient had a "lesion" on her right nipple since about six months ago for which her primary MD treated her with antibiotics and obtained an ultrasound which was reported as normal. She has bloody discharge from the right nipple and no palpable dominant mass. Ultrasound is pending. her breast is tender to palpation, no palpable axillary lymph nodes are noted. (patient examined in the presence of her female nurse. When I discussed biopsy she expressed concern about anesthesia because she has " history of palpitations and heart murmur". Will obtain cardiology evaluation prior to proceeding to biopsy vs. ductal papilloma excision. awaiting ultrasound report. will follow. 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 RIGHT NIPPLE AREOLA BIOPSY. Plan discussed with: Patient, Other REGINA CERNA MD Dec 05, 2024 07:17
[2024-12-05 08:00] VITALS: PULSE 61; PULSE 62; RESP 18; O2SAT 97
[2024-12-05 09:00] VITALS: BP 118/67; PULSE 62; RESP 18; TEMP 97.9; O2SAT 97
[2024-12-05 11:39] LABS: Free T4 (Free Thyroxine) 0.86 ng/dL (0.89-1.76)
[2024-12-05 11:40] LABS: Free T3 1.99 pg/mL (2.3-4.2)
--- NOTE | 2024-12-05 11:53 | DVHPN2 ---
Progress Note Date Seen: Dec 05, 2024 Medical Necessity Reason Pt with a Central, PICC or Fol: No Subjective Patient reports: No new complaints Review of Systems: HEENT:Normal, CVS:Normal, RESPIRATORY:Normal, GI:Normal, :Normal, MSK:Normal, NEURO:Normal Objective vital signs Vital Sign Date Time Temp Pulse Resp B/P (MAP) Pulse Ox O2 Delivery O2 Flow Rate FiO2 12/05/24 09:00 97.9 62 18 118/67 (84) 97 97.9 12/05/24 08:00 Room Air* 0 21 Total Intake and Output 12/04/24 12/04/24 12/05/24 15:00 23:00 07:00 Intake Total 400 ml 350 ml 100 ml Balance 400 ml 350 ml 100 ml medications Current Medications Medications Dose Ordered Sig/Kristofer Route Start Time Stop Time Status Last Admin Dose Admin Ondansetron HCl 4 mg Q4HP PRN IV 12/02/24 08:45 12/05/24 08:20 4 MG Docusate Sodium 100 mg BIDPRN PRN PO 12/02/24 08:45 Nitroglycerin 0.4 mg Q5MINP PRN SL 12/02/24 08:45 Hydromorphone HCl 0.25 mg Q4HPRN PRN IV 12/02/24 10:00 12/02/24 11:57 0.25 MG Acetaminophen 650 mg Q4HP PRN PO 12/03/24 17:15 12/05/24 08:16 650 MG Pregabalin 300 mg BID PO 12/04/24 22:00 12/05/24 11:19 300 MG Diagnostic Test (Pha) 1 strip ACHS 12/04/24 17:00 Cancel Diagnostic Test (Pha) 1 strip ACHS 12/04/24 17:00 12/05/24 06:22 1 STRIP Insulin Human Regular HS SC 12/04/24 22:00 12/04/24 22:00 6 UNITS Insulin Human Regular AC SC 12/04/24 17:00 12/04/24 18:13 6 UNITS Dextrose 50 ml UD PRN IV 12/04/24 14:45 Insulin Glargine 15 units HS SC 12/04/24 22:00 12/04/24 22:04 15 UNITS Examination: GENERAL:Normal, HEENT:Normal, NECK:Normal, LUNGS:Normal, CVS:Normal, ABDOMEN:Normal, MSK:Normal, MSK:Abnormal (RIGHT BREAST LESION), SKIN:Normal, NEURO:Normal, :Normal laboratory and microbiology Laboratory Tests 12/04/24 07:24 12/03/24 06:12 Test 12/04/24 07:24 Range/Units Serum Glucose 104 74-106 mg/dL Microbiology Date/Time Source Procedure Growth Status 12/02/24 05:27 Blood Blood Culture - Preliminary NO GROWTH AFTER 72 HOURS OF INCUBATION. Resulted Problem List/Assessment/Plan Problem List/Assessment/Plan #1 hypoglycemia with encephalopathy #2 dm with insulin pump #3 obesity #4 h/o grave's disease #5 vaginal bleeding/endometrial thickening #6 right breast/nipple bleeding: biopsy recommended advance care planning- full code- time spent 19 mins Plan discussed with: Patient My Orders My Orders Orders - TACHO PIPER MD Procedure Category Date Status Time Glucose Blood PHA 12/04/24 In Process (Accu-Chek Comfort 17:00 Insulin R (Human) PHA 12/04/24 In Process (Insulin R) 22:00 Insulin R (Human) PHA 12/04/24 In Process (Insulin R) 17:00 Dextrose 50% Syringe PHA 12/04/24 In Process 14:45 Insulin Lantus PHA 12/04/24 In Process (Glargine) (Lantus) 22:00 Pregabalin Capsule PHA 12/04/24 In Process (Lyrica Capsule) 22:00 Date of Service: Dec 05, 2024 Billing Provider: TACHO PIPER MD Common Visit Codes: [id number] INP/OBS CARE(HIGH) Secondary Visit Codes: [id number] CARE PLAN 30 MINUTES TACHO PIPER MD Dec 05, 2024 11:53
[2024-12-05 13:00] VITALS: BP 124/58; PULSE 73; RESP 17; TEMP 98.5; O2SAT 95
--- NOTE | 2024-12-05 15:25 | DVHPNRES ---
Progress Note Date Seen: Dec 05, 2024 Resident Creating Document: GODWIN GOODEN RESIDENT Medical Necessity Reason Pt with a Central, PICC or Fol: No Subjective Review of Systems Patient seen and examined at bedside. Patient is alert and oriented to time, place person and responding to all questions. General: Fatigue Eyes: No Pain, No Vision change, No Conjunctivae inflammation, No Eyelid inflammation, No Other, No Redness ENT: No Ear pain, No Ear discharge, No Nose pain, No Nose discharge, No Nose congestion, No Mouth pain, No Mouth swelling, No Throat pain, No Throat swelling, No Other Cardiovascular: No Chest Pain, Palpitations, No Orthopnea, No Paroxysmal No Dyspnea, No Edema, No Lt Headedness, No Other Respiratory: No Cough, No Dry, No Shortness of breath, No SOB with exertion, No Wheezing, No Hemoptysis, No Pleuritic Pain, No Sputum, No Other Gastrointestinal: Nausea, No Vomiting, No Abdominal Pain, No Diarrhea, No Constipation, No Melena, No Hematochezia, No Other Genitourinary: Dysuria, No Frequency, No Incontinence, No Hematuria, No Retention, No Other Objective vital signs Vital Sign Date Time Temp Pulse Resp B/P (MAP) Pulse Ox O2 Delivery O2 Flow Rate FiO2 12/05/24 13:00 98.5 73 17 124/58 (80) 95 98.5 12/05/24 08:00 Room Air* 0 21 Total Intake and Output 12/04/24 12/04/24 12/05/24 14:59 22:59 06:59 Intake Total 400 ml 350 ml 100 ml Balance 400 ml 350 ml 100 ml medications Current Medications Medications Dose Ordered Sig/Kristofer Route Start Time Stop Time Status Last Admin Dose Admin Ondansetron HCl 4 mg Q4HP PRN IV 12/02/24 08:45 12/05/24 08:20 4 MG Docusate Sodium 100 mg BIDPRN PRN PO 12/02/24 08:45 Nitroglycerin 0.4 mg Q5MINP PRN SL 12/02/24 08:45 Hydromorphone HCl 0.25 mg Q4HPRN PRN IV 12/02/24 10:00 12/02/24 11:57 0.25 MG Acetaminophen 650 mg Q4HP PRN PO 12/03/24 17:15 12/05/24 08:16 650 MG Pregabalin 300 mg BID PO 12/04/24 22:00 12/05/24 11:19 300 MG Diagnostic Test (Pha) 1 strip ACHS 12/04/24 17:00 Cancel Diagnostic Test (Pha) 1 strip ACHS 12/04/24 17:00 12/05/24 11:30 1 STRIP Insulin Human Regular HS SC 12/04/24 22:00 12/04/24 22:00 6 UNITS Insulin Human Regular AC SC 12/04/24 17:00 12/05/24 12:45 9 UNITS Dextrose 50 ml UD PRN IV 12/04/24 14:45 Insulin Glargine 15 units HS SC 12/04/24 22:00 12/04/24 22:04 15 UNITS Examination General Appearance: Cooperative. Well developed. Well nourished. NAD Head Exam: Normal inspection Neck Exam: Normal inspection. Non-tender. Normal alignment Pulmonary/Respiratory: Chest non-tender. Clear bilateral breath sounds, no crackles, no wheezing. Cardiovascular/Chest: Regular rate and rhythm. No murmurs. No JVD. Peripheral Pulses: 2+ Radial (R). 2+ Radial (L). 2+ Pedal (R). 2+ Pedal (L) Abdominal Exam: Normal bowel sounds. Soft. normal abdomen, no visible veins, Nontender. No hepatospenomegaly. No masses Ankle Exam: Negative ankle edema Lower extremities: Negative lower extremity edema Neuro/Mental Status: A&O x4. Coherent. Thoughts/Psych: Normal thought pattern. Appropriate mood and affect. Good judgement and insight Skin Exam: Normal inspection. Normal color. Warm. Dry laboratory and microbiology Laboratory Tests 12/04/24 07:24 12/03/24 06:12 Test 12/04/24 07:24 Range/Units Serum Glucose 104 74-106 mg/dL Microbiology Date/Time Source Procedure Growth Status 12/02/24 05:27 Blood Blood Culture - Preliminary NO GROWTH AFTER 72 HOURS OF INCUBATION. Resulted Labs and/or images reviewed: Labs reviewed by me, Image(s) reviewed by me Problem List/Assessment/Plan Problem List/Assessment/Plan Type 2 diabetes with an episode of hypoglycemia induced encephalopathy Type 2 diabetes, uncontrolled on insulin dependent History of Graves disease Family history of atrial fibrillation in sister and brother Bloody nipple discharge; preop clearance for breast biopsy Plan discussed with: Patient, Other (RN) My Orders My Orders Orders - GODWIN GOODEN Procedure Category Date Status Time Transfer Orders XFER 12/04/24 Transmitted 18:15 GODWIN GOODEN RESIDENT Dec 05, 2024 15:25
--- NOTE | 2024-12-05 15:38 | DVHDS2 ---
Discharge Summary Date of Admission Dec 02, 2024 at 08:39 Date of Discharge: Dec 05, 2024 Labs/Diagnostic Data: Laboratory Results Test 12/04/24 21:53 12/04/24 07:24 12/03/24 06:12 12/02/24 05:27 POC Glucose 274 mg/dl (70-106) Sodium Level 143 mmol/L (136-145) Potassium Level 4.0 mmol/L (3.5-5.1) Chloride Level 105 mmol/L (98-107) Carbon Dioxide Level 29 mmol/L (20-31) Anion Gap 9 (5-15) Blood Urea Nitrogen 10 mg/dL (9-23) Creatinine 0.77 mg/dL (0.550-1.02) Glomerular Filtration Rate Calc 87 mL/min (>90) BUN/Creatinine Ratio 13.0 (10.0-20.0) Serum Glucose 104 mg/dL (74-106) Hemoglobin A1c 9.5 % A1C (<5.7) Calcium Level 9.5 mg/dL (8.7-10.4) Magnesium Level 1.9 mg/dL (1.6-2.6) Free Thyroxine (T4) Calculated 0.86 ng/dL (0.89-1.76) Free Triiodothyronine (T3) pg/mL 1.99 pg/mL (2.3-4.2) White Blood Count 6.9 10^3/uL (4.4-10.8) Red Blood Count 4.61 10^6/uL (4.0-5.20) Hemoglobin 13.1 g/dL (12.2-16.2) Hematocrit 39.3 % (36.0-46.0) Mean Corpuscular Volume 85.2 fL (80.0-100.0) Mean Corpuscular Hemoglobin 28.4 pg (28.0-32.0) Mean Corpuscular Hemoglobin Concent 33.4 g/dL (32.0-36.0) Red Cell Distribution Width 14.5 % (11.8-14.3) Platelet Count 177 10^3/uL (140-450) Mean Platelet Volume 7.9 fL (6.9-10.8) Neutrophils (%) (Auto) 62.6 % (37.0-80.0) Lymphocytes (%) (Auto) 29.0 % (10.0-50.0) Monocytes (%) (Auto) 7.0 % (0.0-12.0) Eosinophils (%) (Auto) 0.8 % (0.0-7.0) Basophils (%) (Auto) 0.6 % (0.0-2.0) Neutrophils # (Auto) 4.3 10 ^3/uL (1.6-8.6) Lymphocytes # (Auto) 2.0 10 ^3/uL (0.4-5.4) Monocytes # (Auto) 0.5 10 ^3/uL (0-1.3) Eosinophils # (Auto) 0.1 10 ^3/uL (0-0.8) Basophils # (Auto) 0 10 ^3/uL (0-0.2) Nucleated Red Blood Cells 0.1 % Total Bilirubin 1.0 mg/dL (0.2-1.0) Aspartate Amino Transferase (AST) 23 U/L (<34) Alanine Aminotransferase (ALT) 21 U/L (7-40) Alkaline Phosphatase 128 U/L (46-116) Total Protein 7.3 g/dL (5.7-8.2) Albumin 3.8 g/dL (3.2-4.8) Prolactin 7.87 ng/mL (2.8-29.2) Lactic Acid Level 1.0 mmol/L (0.4-2.0) Troponin I High Sensitivity 16 ng/L (</=34) Thyroid Stimulating Hormone (TSH) 1.22 uIU/mL (0.55-4.78) Test 12/02/24 04:00 12/02/24 02:52 Urine Color Colorless (Yellow) Urine Clarity Clear (Clear) Urine pH 6.0 (5.0-9.0) Urine Specific [place] 1.005 (1.001-1.035) Urine Protein Negative (Negative) Urine Ketones Negative (Negative) Urine Blood 2+ /uL (Negative) Urine Nitrite Negative (Negative) Urine Bilirubin Negative (Negative) Urine Urobilinogen Normal mg/dL (Negative) Urine Leukocyte Esterase Trace /uL (Negative) Urine RBC 27 /hpf (0 - 4) Urine Microscopic WBC 7 /HPF (0-5) Urine Squamous Epithelial Cells Few /hpf (<5) Urine Bacteria None seen /hpf (None Seen) Urine Glucose Normal mg/dL (Normal) Prothrombin Time 12.3 sec (9.3-11.8) Prothrombin Time INR 1.18 (0.9-1.15) Activated Partial Thromboplast Time 34.7 SEC (24.5-34.5) B-Type Natriuretic Peptide 20.50 pg/mL (0-100) Other Laboratory Tests 12/04/24 07:24 12/03/24 06:12 Brief Hx & Hospital Course: SEE DICTATED NOTE Condition at Discharge: Fair Final Diagnosis/Problems List DIABETES Discharge Disposition: Home Discharge Instruct/Medications Diet: Consistent carbohydrate Activity: No Restrictions, As Tolerated Follow Up/Referral: FU WITH PCP /LOW ALTITUDE [employer] DEF[employer] OFFICER IN 1 WK Medications: RESUME HOME MEDS Discharge Statement: "Patient was advised to return to the ER or call 911 if any headaches, dizziness, shortness of breath, chest pain, abdominal pain, bleeding, fevers, or worsening of medical condition. Patient was counseled about treatment plan, medications, possible side effects, patientverbalized understanding. All questions were answered to the best of my ability. This discharge took greater then 30 minutes in planning, reviewing documentation, counseling the patient, and discussing with other team members." ASSESSMENT ASSESSMENT Assessment DIABETES Date of Service: Dec 05, 2024 Billing Provider: TACHO PIPER MD Common Visit Codes: 74599-XAK/[id number] DISCH DAY >30min TACHO PIPER MD Dec 05, 2024 15:38
[2024-12-05 15:46] VITALS: BP 118/67; PULSE 62; RESP 18; TEMP 97.9; O2SAT 97
--- NOTE | 2024-12-05 16:01 | DVHDS ---
DATE OF DISCHARGE: 12/05/2024 HISTORY OF PRESENT ILLNESS: The patient is a 63-year-old lady who was admitted after she was noted to be nauseated and complaining of headache. The patient has a history of irritable bowel syndrome, Graves' disease, diabetes mellitus, uterine fibroids. HOSPITAL COURSE: The patient was noted to have a blood sugar of 175. The patient's hemoglobin A1c was 9.5. The patient had a chest x-ray that showed no acute disease except for moderate prominence of pulmonary vasculature. Duplex of lower extremities was negative. The patient had a Doppler of lower extremity that was also negative for DVT. A CT of the head was unremarkable. The patient had a pelvic ultrasound that showed endometrium that was markedly thickened, and I gave a copy of the ultrasound to the patient. The patient also was noted to have bleeding coming out of the right nipple. Prolactin level was normal. A breast ultrasound showed no abscess or fluid collection. The patient had an echocardiogram that is currently pending. She was seen in Surgery consult by Dr. Segal and was scheduled to undergo a biopsy of the right breast lesion. The patient at this time, however, wishes to leave and does not wish to proceed with surgery. The patient will therefore be discharged as per her wishes. She will follow up with her primary and STAFF RADIATION THERAPIST. FINAL DIAGNOSES: * Hypoglycemia with encephalopathy. * Diabetes mellitus, with insulin pump. * Obesity. * History of Graves' disease. * Right breast lesion with bleeding. * Vaginal bleeding with endometrial thickening. Time spent in discharge planning and review of plan with the patient and nursing was 38 minutes. MD GUSTABO Batres/EKT TID: [id number] RECEIPT: [id number]
--- NOTE | 2024-12-05 17:41 | DVHPN2 ---
Progress Note - Dictate Date Seen: Dec 05, 2024 Medical Necessity Reason Pt with a Central, PICC or Fol: No Subjective Patient was seen and evaluated in follow up. Patient is complains of generalized pain. Echocardiogram is pending. BS in the 270's. Prelim blood cultures are negative. Telemetry reviewed. vital signs Vital Sign Date Time Temp Pulse Resp B/P (MAP) Pulse Ox O2 Delivery O2 Flow Rate FiO2 12/05/24 15:46 97.9 62 18 97 12/05/24 13:00 124/58 (80) 12/05/24 08:00 Room Air* 0 21 Total Intake and Output 12/04/24 12/04/24 12/05/24 15:00 23:00 07:00 Intake Total 400 ml 350 ml 100 ml Balance 400 ml 350 ml 100 ml medications Current Medications Medications Dose Ordered Sig/Kristofer Route Start Time Stop Time Status Last Admin Dose Admin Diagnostic Test (Pha) 1 strip ACHS 12/04/24 17:00 Cancel objective GENERAL: Alert and oriented x 3. No acute distress. EYES: PERRL, EOMI. Anicteric. HENT: Moist mucous membranes. LUNGS: Clear to auscultation bilaterally. CARDIOVASCULAR: Regular rate and rhythm. ABDOMEN: Soft, non-tender and non-distended. EXTREMITIES: No edema. NEUROLOGIC: No focal neurological deficits. SKIN: Warm, dry. 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 Type 2 diabetes, uncontrolled on insulin dependent. History of Graves disease. Family history of atrial fibrillation in sister and brother. Bloody nipple discharge; preop clearance for breast biopsy. Assessment/Plan Continued all current supportive medical care. Dilaudid and Tylenol for pain management. Nitro SL. Additional plan as per the hospital course. Plan discussed with: Patient MARIBELL ELLSWORTH MD Dec 05, 2024 17:27
--- NOTE | 2024-12-08 17:18 | DVHSR ---
APPROVED REPORT EXAM: Two-dimensional and M-mode echocardiogram with Doppler and color Doppler. Blood Pressure: 106/53 mmHg INDICATION Pre-Op RISK FACTORS Obesity: Height: 5'5, Weight: 232 DIMENSIONS LVDd3.8 (3.8-5.7cm)LA (2D)3.8 (1.9-4.0cm)Aortic Root2.8 (2.0-3.7cm) LVDs2.7 (2.5-4.0cm)LA (MM) (1.9-4.0cm)Aortic Cusp Exc2.0 (1.5-2.0cm) EF (%) 54.0 (55-70%)Rt. Atrium4.0 (1.9-4.0cm)Asc. Aorta3.6 cm IVSd1.1 (0.7-1.1cm)RV (D)4.3 (1.8-2.4cm) PWd1.1 (0.7-1.1cm) Mitral Valve MitralMitral Stenosis E wave0.91m/sMV Mean GR.mmHg A wave0.95m/sMV Peak GR.85mmHg E/A ratio1.02D MVAcm2 DECEL [id number] 1/2 [place] Aortic Valve Aortic ValveAortic Stenosis V11.07m/Maxwell Mean GR.6mmHg V21.72m/Maxwell Peak GR.12mmHg LVOT Diameter2.1 (1.8-2.4cm)Doppler AVA2.15cm2 Pulmonic Valve V21.30m/s Tricuspid Valve TR Velocity2.43m/s [id number] Other Information Technically limited study due to patient position.body habitus. Conclusion LV EF IS 65% AND IS NORMAL CALCIFIED TIPS OF MITRAL LEAFLETS CALCIFIED AORTIC LEAFLETS NORMAL TV,PV AND AORTIC LEAFLETS NO EFUSION NORMAL RV FUNCTION AND SIZE
== END 2024-12-05 16:30 | disposition home or self-care (01) | DRG 637 ==
LOC: EDBD 02:22 → ER 02:22 → OVERFLOW 08:39 → EAST 12:25 → TELE-EAST 12-04 22:10
PROVIDERS: ADMIT Internal Medicine; ATTEND Internal Medicine
DX: E11.649 Type 2 diabetes mellitus with hypoglycemia without coma (principal); G93.41 Metabolic encephalopathy; N95.0 Postmenopausal bleeding; E11.40 Type 2 diabetes mellitus with diabetic neuropathy, unspecified; E05.00 Thyrotoxicosis with diffuse goiter without thyrotoxic crisis or storm; Z68.34 Body mass index [BMI] 34.0-34.9, adult; E66.9 Obesity, unspecified; D25.9 Leiomyoma of uterus, unspecified; N64.52 Nipple discharge; R93.89 Abnormal findings on diagnostic imaging of other specified body structures; K58.9 Irritable bowel syndrome, unspecified; E78.5 Hyperlipidemia, unspecified; Z87.440 Personal history of urinary (tract) infections; Z82.49 Family history of ischemic heart disease and other diseases of the circulatory system; Z80.3 Family history of malignant neoplasm of breast; Z79.4 Long term (current) use of insulin; Z88.5 Allergy status to narcotic agent; Z88.0 Allergy status to penicillin; Z88.2 Allergy status to sulfonamides
CPT/HCPCS: 36415; 70450; 71045; 76642; 76856; 80048; 80053; 81001; 82962; 83036; 83605; 83735; 83880; 84146; 84439; 84443; 84481; 84484; 85025; 85610; 85730; 87040; 93005; 93306; 93925; 93970; 96365; 96372; G0378; J1815; J2405